=== PATIENT | female | born 1960 | race Caucasian/White ===

== ENCOUNTER → 2019-12-13 | Outpatient (CLI) | payer BC ==
[~2019-12-13] MED LIST: ALBU2.5V8 INH; BUDE10.2 IH; BUPR1PAT8 TP; BYSTOLIC10 MG PO; DEXT10CA10 PO; DEXT10TA23 PO; DEXT20CA7 PO; FEXO180T81 PO; FLUO20CA20 PO; FLUT16SP NS; FLUT1DIS5 IH; GABA600T7 PO; IBUP-1027 PO; METH-38 PO; MONT10TA49 PO; NAPR220T70 PO; OXYC15TA3 PO; [UNRECOGNIZED DRUG - CODE] PO
[2019-12-13 16:04] LABS: BASO # 0.1 x10^3/uL (0.0-0.2); BASO % 1 % (0-3); EOS % 1 % (0-3); HEMATOCRIT 36.9 % (36.0-47.0); LYMPH # 1.2 x10^3/uL (1.0-4.8); LYMPH % 14 % (24-48); MEAN CORPUSCULAR HEMOGLOBIN 30 pg (25-35); MEAN CORPUSCULAR HGB CONC 33 g/dL (31-37); MEAN CORPUSCULAR VOLUME 93 fL (79-100); MONO # 0.5 x10^3/uL (0.0-1.1); MONO % 5 % (0-9); NEUT % 79 % (31-73); PLATELET COUNT 322 x10^3/uL (140-400); RED BLOOD COUNT 3.96 x10^6/uL (3.50-5.40); RED CELL DISTRIBUTION WIDTH 12.8 % (11.5-14.5); WHITE BLOOD COUNT 8.8 x10^3/uL (4.0-11.0)
[2019-12-13 16:18] LABS: PROTHROMBIN TIME PATIENT 12.8 SEC (11.7-14.0)
[2019-12-13 16:20] LABS: ALBUMIN/GLOBULIN RATIO 1.2 (1.0-1.7); CALCIUM 9.3 mg/dL (8.5-10.1); CREATININE 1.1 mg/dL (0.6-1.0); GFR 51.2; POTASSIUM 4.6 mmol/L (3.5-5.1); TOTAL BILIRUBIN 0.2 mg/dL (0.2-1.0); TOTAL PROTEIN 7.4 g/dL (6.4-8.2)
--- NOTE | 2019-12-13 16:30 | EKG ---
[facility] [address] [place] [address] Test Date: 2019-12-13 Test Time: 16:11:09 Pat Name: LUCITA LOPEZ Department: Room: Gender: F Manager Gallery: PETER : 1960 Requested By: CHAUNCEY MCCRAY Order Number: [id number] Reading MD: Yamil Martinez Measurements Intervals [place] Rate: 71 P: 28 HI: 168 QRS: 37 QRSD: 84 T: 18 QT: 388 QTc: 422 Interpretive Statements SINUS RHYTHM Electronically Signed On 12-14-2019 11:03:00 CDT by Yamil Martinez
== END ==
LOC: SURGPAT 15:33
PROVIDERS: ATTEND Neurological Surgery
DX: Z11.59 Encounter for screening for other viral diseases (principal); M48.061 Spinal stenosis, lumbar region without neurogenic claudication; M43.16 Spondylolisthesis, lumbar region; M43.26 Fusion of spine, lumbar region; M96.1 Postlaminectomy syndrome, not elsewhere classified; M54.16 Radiculopathy, lumbar region; Z88.0 Allergy status to penicillin
CPT/HCPCS: 80053; 85025; 85610; 85730; 87641; 93005; U0003

== ENCOUNTER 2019-12-17 06:26 | Inpatient (IN) | payer BC ==
--- NOTE | 2019-12-14 16:32 | HP ---
ADMIT DATE: 12/17/2019 PREOPERATIVE HISTORY AND PHYSICAL DATE OF SURGERY: 12/17/2019. HISTORY OF PRESENT ILLNESS: The patient is a pleasant 59-year-old, who has difficulty with low back pain and pain which predominantly affects her left buttock, posterior lateral thigh, and the leg on the left side. She stated that since I saw her last, she has undergone physical therapy and her right leg did improve, but her left leg became much more severe. She says that her pain is right now about a 2/10, but can reach an 8/10 when she is active. Sitting is very uncomfortable for her. She has had difficulty with doing stairs. She is taking [place] and gabapentin. She has had 4 weeks of physical therapy. She said that this was not helpful for her other than for core strengthening. 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 PAST SURGICAL HISTORY: An ORIF right radial 2013, a left ACL 2014, a left total hip 2016, a right total hip 2015, lumbar lami 2015. FAMILY HISTORY: AFib, hypertension, spine problems. SOCIAL HISTORY: She is employed as a nurse practitioner. . Does not exercise regularly right now. Denies tobacco use. Drinks alcohol 1-2 times per week. ALLERGIES: PENICILLIN. CURRENT MEDICATIONS: Lakia, albuterol, gabapentin, Symbicort, montelukast sodium, Adzenys ER, Bystolic, Aleve, and [place]. REVIEW OF SYSTEMS: A 12-point review of systems was obtained and is noncontributory except for that mentioned above. PHYSICAL EXAMINATION: NEUROSURGERY EXAMINATION: GENERAL APPEARANCE: Alert, pleasant, no acute distress. HEAD: Normocephalic and atraumatic. SKIN: Warm and dry. MUSCULOSKELETAL: Lumbar paraspinal muscle bulk is normal, restricted range of motion of the lumbar spine, [id number] tenderness of the lower lumbar spine with palpation, normal range of motion of the lower extremities bilaterally. EXTREMITIES: No clubbing, cyanosis, or edema. NEUROLOGIC: Alert and oriented x 3. Normal recent and remote memory. Strength 5/5 in bilateral lower extremities. Sensory is intact to light touch in lower extremities bilaterally except for a decreased sensation on the left lateral leg. Reflexes are present and symmetric in bilateral lower extremities, negative straight leg raising bilaterally, forward stooped gait. IMAGING: I reviewed again her lumbar myelogram and post-myelogram CT scan. On that study, she has severe lumbar spinal stenosis at L4-L5. There is a grade 1 anterolisthesis as well as the lateral listhesis at that level. She has postoperative changes with a midline laminectomy, which is quite narrow. Her stenosis is markedly increased with standing. ASSESSMENT/ PLAN: I continue to feel that she would do well with a wide laminectomy at L4-L5 combined with instrumentation from L4 to sacrum. I would also performed posterolateral fusion as well as the anterior interbody fusion at L4-L5. I discussed with her the surgery including the rationale, technique, risks, and expected postoperative course. She understands. She elected to go ahead. We will make the arrangements. CHAUNCEY MCCRAY MD DR: VALERY/rey JOB#: [id number] / [id number] EMMETT
[~2019-12-17] VITALS: Ht 172.7 cm; Wt 79.4 kg
[2019-12-17] VITALS (8 sets, daily range): BP systolic 115–152; BP diastolic 36–78
[~2019-12-17 06:26] MED LIST changes: +BACITRACIN 50,000 UNIT in IV NORMAL SALINE 1000ML BAG 1,000 ML IRR ONE; +VANCOMYCIN 1GM IVPB FOR OMNI 250 ML IV PRN
[2019-12-17] MEDS ORDERED: ONDANSETRON PF 4 MG/2 ML VIAL. ONE (06:49)
[2019-12-17] MEDS ORDERED: DEXAMETHASONE SOD PHOS 4 MG/ML VIAL ONE (06:49)
[2019-12-17] MEDS ORDERED: LIDOCAINE 2% PF 5 ML VIAL. ONE (06:51)
[2019-12-17] MEDS ORDERED: PROPOFOL 10 MG/ML (20ML) VIAL. IV ONE (06:51)
[2019-12-17] MEDS ORDERED: ePHEDrine PF IN SALINE 50 MG/10 ML SYRINGE. IV ONE (06:52)
[2019-12-17] MEDS ORDERED: PHENYLEPHRINE in 0.9% NACL PF 1 MG/10 ML SYRINGE. IV ONE (06:52)
[2019-12-17] MEDS ORDERED: ROCURONIUM 50 MG/5 ML VIAL. ONE (06:53)
[2019-12-17] MEDS ORDERED: PROPOFOL 100 ML IV ONE (06:57)
[2019-12-17] MEDS ORDERED: LIDOCAINE 1% PF 2 ML VIAL. ID PRN (07:00)
[2019-12-17] MEDS ORDERED: ONDANSETRON PF 4 MG/2 ML VIAL. IV PRN (07:00)
[2019-12-17] MEDS ORDERED: MORPHINE SULFATE 2 MG/ML VIAL. IV PRN (07:00)
[2019-12-17] MEDS ORDERED: PROCHLORPERAZINE 10 MG/2 ML VIAL. IV PRN (07:00)
[2019-12-17] MEDS: IV RINGERS,LACTATED 1000ML 1,000 ML IV SCH ×2 (07:00→16:14)
[2019-12-17] MEDS ORDERED: fentaNYL PF VIAL 100 MCG/2 ML VIAL IV PRN (07:00)
[2019-12-17] MEDS ORDERED: HYDROmorphone 2 MG/ML VIAL IV PRN (07:00)
[2019-12-17] MEDS ORDERED: KETOROLAC 60 MG/2 ML VIAL. ONE (07:03)
[2019-12-17] MEDS ORDERED: THROMBIN TOPICAL 20,000 UNIT SPRAY.SYRN KIT TP ONE (07:03)
[2019-12-17] MEDS ORDERED: BUPIVACAINE-EPI 0.5%-1:200000 MPF 30 ML VIAL. ONE (07:03)
[2019-12-17] MEDS ORDERED: GELATIN SPONGE SIZE 100. ONE ×2 (07:03→07:32)
[2019-12-17] MEDS ORDERED: REMIFENTANIL 2 MG VIAL. IV ONE (08:00)
[2019-12-17] MEDS ORDERED: fentaNYL PF VIAL 100 MCG/2 ML VIAL ONE ×2 (08:00→16:07)
[2019-12-17] MEDS ORDERED: PHENYLEPHRINE 10 MG/ML VIAL. ONE (08:04)
[2019-12-17] MEDS ORDERED: MIDAZOLAM HCL/PF 2 MG/2 ML VIAL. ONE (08:09)
[2019-12-17] MEDS ORDERED: SUCCINYLCHOLINE 200 MG/10 ML VIAL. ONE (08:09)
--- NOTE | 2019-12-17 08:40 | RAD ---
EXAM: CT Lumbar Spine without IV contrast INDICATION: Reason: BRAIN LAB, LUMBAR STENOSIS, RADICULOPATHY. / Spl. Instructions: / History: TECHNIQUE: Multi-detector row CT images were obtained through the lumbar spine without the use of IV contrast. Post-processing sagittal and coronal reconstructed images were obtained for interpretation. All CT scans performed at this facility utilize dose optimization techniques as appropriate to the exam, including the following: Automated exposure control and adjustment of the mA and/or KV according to patient size (this includes techniques or standardized protocols for targeted exams where dose is indication/reason for exam). COMPARISON: None FINDINGS: The lowest fully formed disc is referred to as the L5-S1 level. ALIGNMENT: Levoscoliosis with Denny angle of 24.85 percent is present, apex at L3-L4. Grade 1 anterolisthesis of L4 on L5 of 5 mm and subtle retrolisthesis of L1 on L2 and of L3 on L4 of 1 to 2 mm respectively are noted. OSSEOUS: Vertebral body heights are preserved and the bones are mildly demineralized. No fracture or aggressive osseous lesions are identified. There is a densely sclerotic 1.8 cm oval lesion in the right sacrum on the lateral aspect of the S1 neural foramen, favored to represent a giant bone island. A right hip arthroplasty is present and there is hardware of the left acetabulum only partially imaged on the major gifts officer view. DISC LEVELS: At T12-L1, a large left paracentral ventral epidural mass measuring 9 mm AP x 1.9 cm craniocaudal, and 1.5 cm oblique mediolateral is present, in apparent contact with the T12-L1 disc space (best illustrated on sagittal image 24 of series 6 and on axial images 22 through 39 on series 2). This results in at least moderate central canal stenosis from the proximal superior endplate of T12 through the T12-L1 disc space, detail slightly obscured by low soft tissue contrast. There is moderate left and no significant right foraminal stenosis. At L1-L2, disc osteophyte complex with subchondral cystic change and vacuum phenomenon along with minimal retrolisthesis is present mild bony facet hypertrophic change is present as well. Moderate bilateral foraminal stenosis is present. Mild central canal narrowing is noted. At L2-L3, diffuse disc bulge with mild bilateral facet hypertrophy and ligamentum flavum thickening results in marked flattening of the thecal sac, central canal AP diameter measuring 5 mm on axial image 8 of series 10. Loss of height also results in moderate right and mild left bilateral foraminal narrowing. At L3-L4, disc osteophyte complex with bilateral facet hypertrophy and mild ligamentum flavum thickening results in moderate central canal narrowing, moderate left foraminal narrowing and moderate to severe right foraminal stenosis. At L4-L5, diffuse disc bulge with anterolisthesis and bilateral facet hypertrophy together results in severe central canal narrowing. There are postsurgical changes from a previous L4 laminotomy. There is mild left and moderate right bilateral foraminal narrowing. At L5-S1, disc osteophyte complex with loss of height and bilateral facet hypertrophy results in moderate to severe bilateral foraminal stenosis and in at least moderate central canal stenosis, contributed in part by bilateral ligamentum flavum thickening. SOFT TISSUES: Unremarkable. IMPRESSION: Multilevel lumbar spinal degenerative spondylosis as described (including a large ventral epidural mass likely representing an extruded disc fragment at the T12 level), status post previous L4 laminotomy. Electronically signed by: Lorena Ashby MD (12/17/2019 8:37 AM) [id number]
[2019-12-17] MEDS ORDERED: MONTELUKAST SODIUM 10 MG TABLET. PO PRN (10:30)
[2019-12-17] MEDS ORDERED: ALBUTEROL SULFATE 2.5 MG/3 ML NEBU. INH PRN (10:30)
[2019-12-17] MEDS ORDERED: MAG HYDROX/ALUMINUM HYD/SIMETH 30 ML ORAL.SUSP PO PRN (10:45)
[2019-12-17] MEDS ORDERED: ONDANSETRON PF 4 MG/2 ML VIAL. IVP PRN (10:45)
[2019-12-17] MEDS ORDERED: diphenhydrAMINE HCL 25 MG CAPSULE PO PRN (10:45)
[2019-12-17] MEDS ORDERED: 0.9 % SODIUM CHLORIDE 10 ML DISP.SYRIN. IV PRN (10:45)
[2019-12-17] MEDS ORDERED: oxyCODONE/APAP 5/325 1 TAB TABLET PO PRN (10:45)
[2019-12-17] MEDS ORDERED: CALCIUM CARBONATE 500 MG TAB.CHEW PO PRN (10:45)
[2019-12-17] MEDS ORDERED: NALOXONE 0.4 MG/ML VIAL. IV PRN (10:45)
[2019-12-17] MEDS ORDERED: ACETAMINOPHEN 325 MG TABLET. PO PRN (10:45)
[2019-12-17] MEDS ORDERED: MAGNESIUM HYDROXIDE 2,400 MG/30 ML ORAL.SUSP. PO PRN (10:45)
[2019-12-17] MEDS ORDERED: REMIFENTANIL 1 MG VIAL. IV ONE ×2 (11:13→13:30)
[2019-12-17] MEDS ORDERED: 0.9 % SODIUM CHLORIDE 20 ML VIAL. IJ ONE ×2 (11:13→13:30)
[2019-12-17] MEDS: METOPROLOL TART IMMED RELEASE 50 MG TABLET. PO SCH ×2 (12:00→21:00)
[2019-12-17] MEDS: CETIRIZINE HCL 10 MG TABLET. PO SCH (12:00)
[2019-12-17] MEDS: FLUTICASONE 50MCG/NASAL SPRAY 16GM BOTTLE. NS SCH (12:00)
[2019-12-17] MEDS ORDERED: ceFAZolin SODIUM IV Push 1 GM VIAL. IVP ONE (12:05)
[2019-12-17] MEDS ORDERED: PROPOFOL 50 ML IV ONE (12:09)
[2019-12-17] MEDS ORDERED: HYDROmorphone 2 MG/ML VIAL ONE (12:49)
[2019-12-17] MEDS: BUDESONIDE 0.5 MG/2 ML NEBU. NEB SCH ×3 (13:00→20:01)
[2019-12-17] MEDS ORDERED: SEVOFLURANE > 120 MINUTES. IH ONE (15:48)
[2019-12-17] MEDS ORDERED: PROCHLORPERAZINE 10 MG/2 ML VIAL. ONE (16:07)
[2019-12-17] MEDS: fentaNYL PF VIAL 100 MCG/2 ML VIAL IV PRN ×2 (16:13→16:46)
--- NOTE | 2019-12-17 16:50 | OP ---
DATE OF SURGERY: 12/17/2019 PREOPERATIVE DIAGNOSES: Severe spinal stenosis L4-L5 with spondylolisthesis L4-L5, previous surgery with laminectomy L4-L5. POSTOPERATIVE DIAGNOSES: Severe spinal stenosis L4-L5 with spondylolisthesis L4-L5, previous surgery with laminectomy L4-L5. OPERATION PERFORMED: Left direct laminectomy L4-L5 with decompression of dura and nerve root, posterior instrumentation L4-L5, posterolateral fusion L4-L5, anterior discectomy and fusion L4-L5. The operation was done with EMG monitoring, SSEP monitoring, triggered EMG monitoring, fluoroscopy, microscopic dissection, BrainLAB guidance. SURGEON: Chi Mccray M.D. CHEESE SUPERVISOR: Lita Beasley APRN who assisted with placement of the hardware and decompression. OPERATIVE INDICATIONS: The patient is a pleasant 59-year-old, who developed intractable back and left-sided pain, which radiated into her left buttock and lateral thigh. On imaging studies, she had above-mentioned findings and I recommended lumbar surgery as described above after she failed conservative measures. She understood the surgery. She understood the risks and she wished to go ahead. DESCRIPTION OF PROCEDURE: Following general endotracheal anesthesia, the patient was positioned prone on the Ricky table. Lumbar region was prepped and draped in the standard fashion. KENDAL hose and AV impulse boots were applied for DVT prophylaxis. The microscope was draped. Fluoroscopy was draped and brought into field. Monitoring was established. Ancef 2 grams was given less than 1 hour prior to initiation of the surgery. Using fluoroscopic guidance, a previous incision was reopened. I did carry this slightly further superiorly. I dissected down through skin and subcutaneous tissue, reflected the paraspinal muscles and placed self-retaining retractor, this after I had placed iliac pins into the right iliac crest and initialized the BrainLAB system. I obtained exposure on the left side and using the BrainLAB system and anatomic landmarks, I drilled into the posterior aspect of the pedicle of L4 and L5. I passed the black ball with stimulated EMG monitoring followed by ball tip probe, followed by tap with stimulated EMG monitoring. I covered those openings with bone wax. I did expose the lateral facets and transverse processes. I aspirated 20 mL of bone marrow and mixed with allograft bone, which was then packed into the left lateral gutter. I brought in the microscope and I burred down a laminotomy and then I carried across the midline to perform laminectomy and then I worked laterally into the foramen. There was considerable scarring and the large bone spurs protruding in and compressing the nerve root and I trimmed this material away and pulled these large bone spurs away and also performed a generous partial foraminotomy. I then switched to the right side in a similar fashion. I created exposure. I cannulated the pedicles. I excoriated the transverse processes and lateral facets. I packed allograft bone lateral. I drilled into the posterior aspect of the pedicles and I passed the black ball and the taps. At this time, I placed screws using the [place] system with a 7.5 x 35 screw at L5 and a 6.5 x 40 screw at L4. I placed the dexter. Nuts were applied, but I did not torque. I then went to the contralateral side and performed the anterior operation by tilting the patient away from me and making incision in the left flank, passed the BrainLAB probe down to dock at the inferior aspect of the pedicle of L5, where I worked superiorly, was able to enter the disc space. I passed the K-wire and then a dilator followed by a working channel. I then entered into the disc space, which was largely collapsed. I did pass a disc shaver, which I opened, which helped open up the disc space slightly. I was able to remove disk and then I scraped cartilaginous endplate. I passed a trial followed by 9 x 9 mm cage, which was tapped into position and released. I then placed pedicle screws in L4 and L5 and compressed slightly on the left. I then torqued sequentially the screws on the left and right sides. I did pack allograft bone as well within the cage and into the disc space on the left. Following this, I released the cage and removed the instrumentation. I irrigated copiously. I closed the wound in layers with absorbable suture. The skin was closed with a 4-0 subcuticular stitch. X-rays looked very good. I was quite pleased with the surgery. CHI MCCRAY MD DR: VALERY/rey JOB#: [id number] / [id number] EMMETT
[2019-12-17] MEDS: ALBUTEROL SULFATE 2.5 MG/3 ML NEBU. NEB SCH ×2 (18:00→20:01)
--- NOTE | 2019-12-17 18:02 | NUR ---
received from recovery; at bedside. drowsy but answers questions. she is rating her pain 4; repositioned on left lateral side and pain went to "3'. she can move all extremities, denies numbness pulse reuben lower extremities. she has 4 dressings on her back, 2 on her left hip area 1 on her right hip area and 1 that is along the spine. oriented to room. admission completed.
[2019-12-17] MEDS: fentaNYL PF VIAL 100 MCG/2 ML VIAL IVP PRN (18:38)
[2019-12-17] MEDS: ceFAZolin SODIUM IV Push 1 GM VIAL. IVP SCH ×2 (18:39→22:14)
[2019-12-17] MEDS: POTASSIUM CL 20MEQ D5-0.45NACL 1,000 ML IV SCH ×2 (18:39→23:56)
--- NOTE | 2019-12-17 18:56 | NUR ---
became very uncomfortable; rating her pain 10/10. up to bathroom; voided. medicated with fentanyl 50 and ice placed to back.
[2019-12-17] MEDS: METHOCARBAMOL 750 MG TABLET PO PRN (19:15)
[2019-12-17] MEDS: GABAPENTIN 300 MG CAPSULE. PO PRN (19:49)
[2019-12-17] MEDS ORDERED: NON FORMULARY ITEM (Budesonide/Formoterol Fumarate (Symbicort 160-4.5 Mcg Inhaler) 1 PUFF) IH SCH (21:00)
[2019-12-17] MEDS: DOCUSATE SODIUM 100 MG CAPSULE. PO SCH (21:03)
[2019-12-17] MEDS ORDERED: BUDESONIDE 0.5 MG/2 ML NEBU. NEB PRN (21:16)
[2019-12-17] MEDS ORDERED: ALBUTEROL SULFATE 2.5 MG/3 ML NEBU. NEB PRN (21:30)
[2019-12-17] MEDS: oxyCODONE/APAP 5/325 1 TAB TABLET PO PRN (23:45)
[2019-12-18] MEDS: fentaNYL PF VIAL 100 MCG/2 ML VIAL IV PRN (01:05)
[2019-12-18] MEDS: fentaNYL PF VIAL 100 MCG/2 ML VIAL IVP PRN ×2 (01:05→03:39)
[2019-12-18 03:00] VITALS: BP 93/33
[2019-12-18] MEDS: METHOCARBAMOL 750 MG TABLET PO PRN ×2 (03:02→08:43)
[2019-12-18] MEDS: ceFAZolin SODIUM IV Push 1 GM VIAL. IVP SCH (05:55)
[2019-12-18] MEDS: oxyCODONE/APAP 5/325 1 TAB TABLET PO PRN ×2 (06:04→11:35)
[2019-12-18 06:29] VITALS: BP 127/51
[2019-12-18] MEDS: CETIRIZINE HCL 10 MG TABLET. PO SCH (08:42)
[2019-12-18] MEDS: DOCUSATE SODIUM 100 MG CAPSULE. PO SCH (08:42)
[2019-12-18] MEDS: METOPROLOL TART IMMED RELEASE 50 MG TABLET. PO SCH ×2 (08:43→08:53)
[2019-12-18] MEDS: GABAPENTIN 300 MG CAPSULE. PO PRN (08:45)
[2019-12-18] MEDS: FLUTICASONE 50MCG/NASAL SPRAY 16GM BOTTLE. NS SCH (08:52)
[2019-12-18] MEDS ORDERED: AMPHETAMINE PO SCH ×2 (09:00)
[2019-12-18] MEDS ORDERED: DEXTROAMPHETAMINE PO SCH (09:00)
[2019-12-18] MEDS ORDERED: [UNRECOGNIZED DRUG - OTHER] PO SCH (09:00)
[2019-12-18 11:54] VITALS: BP 100/41
[2019-12-18] MEDS ORDERED: DOCU-153 PO (13:06)
[2019-12-18] MEDS ORDERED: OXYC1TAB15 PO (13:06)
--- NOTE | 2019-12-18 13:08 | DISCH ---
DISCHARGE INSTRUCTIONS Condition on Discharge Condition on Discharge: Stable Activity After Discharge Activity Instructions for Disc: Activity as tolerated, Avoid exertion Lifting Instructions after Dis: No heavy lifting, Do not lift >10 pounds Driving Instructions after Dis: Do not drive Diet after Discharge Additional Diet Restrictions: resume home diet Wound Incision Care Wound/Incision Care: Ice to area for comfort Other wound/incision instructi: change dressing as needed, ok to shower, no soaking Contacting the DRAndry after DC Call your doctor for: Concerns you may have Follow-Up Follow up with: Dr. Mccray's nurse in 2 weeks [phone] CHAUNCEY MCCRAY MD Dec 18, 2019 13:08
--- NOTE | 2019-12-18 13:16 | DS ---
DATE OF DISCHARGE: 12/18/2019 DISCHARGE DIAGNOSES: Severe spinal stenosis at L4-L5 with spondylolisthesis at L4-L5, previous surgery with laminectomy at L4-L5. OPERATION PERFORMED: Left direct laminectomy at L4-L5 with decompression of dura and nerve root, posterior instrumentation at L4-L5, posterolateral fusion at L4-L5, anterior diskectomy and fusion at L4-L5. HISTORY OF PRESENT ILLNESS: The patient is a pleasant 59-year-old who developed intractable back and left-sided pain. The pain radiated into her left buttock and lateral thigh. On imaging studies, she had the above-mentioned findings and I recommended lumbar surgery as described above after she had failed to improve with conservative measures. She understood the surgery and the risks and wished to proceed. HOSPITAL COURSE: She was admitted to the floor postoperatively. She has done well. She has been up ambulating in the room and in the halls. Physical therapy was initiated and instruction was given to her regarding her activities. Her pain is well controlled and she is in good condition to discharge home. DISCHARGE MEDICATIONS: She will resume her medications per the MRAD. DISCHARGE INSTRUCTIONS: She was instructed regarding incision care, activity restrictions and expectations for the next several weeks. She will follow up in our office in 2 weeks. She understands to call with any questions or concerns. CHAUNCEY MCCRAY MD DR: SINDHU/rey JOB#: [id number] / [id number]
--- NOTE | 2019-12-18 13:52 | NUR ---
reviewed discharge instructions with patient and . demonstrated dressing changes and supplied enough dressings and chlor prep for 10 changes. brace on and demonstrated application. saline lock removed. reviewed medications and side effects. ready to go home. original surgical dressing removed this am questions answered.
== END 2019-12-18 14:05 | disposition home or self-care (01) | DRG 460 ==
LOC: OPSVCIP 06:26 → 4 NORTH 17:28
PROVIDERS: ADMIT Neurological Surgery; ATTEND Neurological Surgery
PROC: 01NB0ZZ Release Lumbar Nerve, Open Approach (ICD-10-PCS; 2019-12-17)
PROC: 0SB20ZZ Excision of Lumbar Vertebral Disc, Open Approach (ICD-10-PCS; 2019-12-17)
PROC: 4A11X4G Monitoring of Peripheral Nervous Electrical Activity, Intraoperative, External Approach (ICD-10-PCS; 2019-12-17)
PROC: 07DR0ZZ Extraction of Iliac Bone Marrow, Open Approach (ICD-10-PCS; 2019-12-17)
PROC: 0SG00K1 Fusion of Lumbar Vertebral Joint with Nonautologous Tissue Substitute, Posterior Approach, Posterior Column, Open Approach (ICD-10-PCS; principal; 2019-12-17 08:30)
DX: M48.062 Spinal stenosis, lumbar region with neurogenic claudication (principal); I10 Essential (primary) hypertension; J45.909 Unspecified asthma, uncomplicated; M16.0 Bilateral primary osteoarthritis of hip; M43.16 Spondylolisthesis, lumbar region; M54.16 Radiculopathy, lumbar region; M77.9 Enthesopathy, unspecified; Z82.49 Family history of ischemic heart disease and other diseases of the circulatory system; Z88.0 Allergy status to penicillin; Z79.899 Other long term (current) drug therapy
CPT/HCPCS: 36415; 72131; 76000; 86850; 86900; 86901; A7015; C1713; J0330; J0690; J0780; J1100; J1170; J1885; J2250; J2370; J2405; J2704; J3010; J3480; J3490; J7030; J7120; 97116-GP; 97530-GP; G0378; J7613; J7626